=== PATIENT | female | born 1960 | race Caucasian/White ===

== ENCOUNTER 2016-07-21 09:02 | Emergency (ER) | payer OTHER | END 2016-07-21 10:40 | disposition home or self-care (01) | LOC: ER 09:02 | DX: S91.332A Puncture wound without foreign body, left foot, initial encounter (principal); S91.341A Puncture wound with foreign body, right foot, initial encounter; W45.0XXA Nail entering through skin, initial encounter; Y92.019 Unspecified place in single-family (private) house as the place of occurrence of the external cause; F17.210 Nicotine dependence, cigarettes, uncomplicated | CPT/HCPCS: 90471; 90715; 99282-25; 99283 ==